=== PATIENT | female | born 1965 | race Caucasian/White ===

== ENCOUNTER 2023-07-01 09:06 | Outpatient (CLI) | payer OTHER, SELFPAY ==
--- NOTE | 2023-07-01 09:29 | FL_ITS ---
WS: [id number] EXAMINATION: FL barium swallow [id number] REASON FOR EXAM: ESOPHAGEAL DYSPHAGIA ORDER DATE: 07/01/2023 9:39 AM COMPARISON: None available. TECHNIQUE: The patient was able to swallow thick barium for the esophagram. Cine-fluoroscopy with rapid sequence imaging was obtained while the patient swallowed. The patient was also placed supine and in various recumbent positions during the exam. FINDINGS: There was a normal mucosal fold pattern in the upper esophagus. There is no sign of diverticula, webs or stricture. There was no delay in contrast emptying from the esophagus into the stomach.. There wa s no sliding hiatal hernia. With provocative maneuvers no gastroesophageal reflux was initiated. The distal esophageal mucosal pattern is unremarkable. IMPRESSION: 1. NORMAL ESOPHAGUS WITHOUT DELAYED EMPTYING. 2. NO REFLUX FLUOROSCOPY TIME: 2min [id number] # OF SPOT FILMS:
== END 2023-07-01 09:07 | disposition home or self-care (01) ==
PROVIDERS: PCP Nurse Practitioner Family; Visit Provider Nurse Practitioner Family
DX: R13.19 Other dysphagia (principal)
CPT/HCPCS: 74220